=== PATIENT | male | born 1995 | race African-American/Black ===

== ENCOUNTER 2017-08-01 07:55 | Emergency (ER) | payer MEDICAID ==
[~2017-08-01] VITALS: Ht 177.8 cm; Wt 68.0 kg
[2017-08-01] MEDS ORDERED: DEXAMETHASONE 10 MG/ML VIAL IM ONE (12:45)
[2017-08-01] MEDS ORDERED: IPRATROPIUM/ALBUTEROL 0.5-3(2.5)MG/3ML NEB HHN ONE (12:45)
[2017-08-01] MEDS ORDERED: KETOROLAC 30MG/ML VIAL IM ONE (14:15)
[2017-08-01 14:34] VITALS: BP 129/73
== END 2017-08-01 15:19 | disposition home or self-care (01) ==
LOC: ER 08:15
DX: J45.901 Unspecified asthma with (acute) exacerbation (principal)
CPT/HCPCS: 71020; 94640; 96372; 99284; J1885; J7620

== ENCOUNTER 2020-03-07 03:40 | Emergency (ER) | payer MEDICAID ==
[~2020-03-07] VITALS: Ht 177.8 cm; Wt 128.0 kg
[2020-03-07 03:54] VITALS: BP 150/92
[2020-03-07] MEDS ORDERED: ACETAMINOPHEN 325MG TABLET PO ONE (07:30)
== END 2020-03-07 11:20 | disposition home or self-care (01) ==
LOC: ER 04:40
DX: S86.912A Strain of unspecified muscle(s) and tendon(s) at lower leg level, left leg, initial encounter (principal); S09.8XXA Other specified injuries of head, initial encounter; J45.909 Unspecified asthma, uncomplicated; V43.62XA Car passenger injured in collision with other type car in traffic accident, initial encounter; Y93.9 Activity, unspecified; Y92.410 Unspecified street and highway as the place of occurrence of the external cause
CPT/HCPCS: 73552; 73560; 99284